=== PATIENT | male | born 1930 ===

== ENCOUNTER 2021-04-26 00:45 | Day surgery (SDC) | payer MEDICARE, OTHER ==
[~2021-04-26 00:45] MED LIST: BRIMONIDINE TART5 M1 BOTHEYES; DORZOPSO BOTHEYES; EUTHYROX50 MCG PO; GLUCHON PO; LATA.005SO BOTHEYES; THERA-D2000 UNIT PO
== END 2021-04-26 22:43 | disposition home or self-care (01) ==
LOC: WOUND 00:45
DX: L89.153 Pressure ulcer of sacral region, stage 3 (principal); R77.0 Abnormality of albumin; R54 Age-related physical debility
CPT/HCPCS: A9270; G0463

== ENCOUNTER 2021-05-03 04:32 | Day surgery (SDC) | payer MEDICARE, OTHER | END 2021-05-03 22:58 | disposition home or self-care (01) | LOC: WOUND 04:32 | DX: L89.153 Pressure ulcer of sacral region, stage 3 (principal); R77.0 Abnormality of albumin; R54 Age-related physical debility | CPT/HCPCS: A9270 ==